=== PATIENT | male | born 1990 | race Caucasian/White ===

== ENCOUNTER 2019-07-01 18:40 | Emergency (ER) | payer SELFPAY ==
[~2019-07-01] VITALS: Ht 170.2 cm; Wt 74.8 kg
[2019-07-01 19:00] VITALS: BP_SYST 132
[2019-07-01 19:28] VITALS: BP_SYST 132
== END 2019-07-01 19:26 ==
LOC: SED 18:40
DX: S01.81XA Laceration without foreign body of other part of head, initial encounter (principal); F10.129 Alcohol abuse with intoxication, unspecified; V89.2XXA Person injured in unspecified motor-vehicle accident, traffic, initial encounter; Y93.89 Activity, other specified; Y92.488 Other paved roadways as the place of occurrence of the external cause; Y99.8 Other external cause status
CPT/HCPCS: 99283

== ENCOUNTER 2020-11-21 03:25 | Emergency (ER) | payer MEDICAID ==
[2020-11-21] MEDS ORDERED: BACITRACIN 1 GM OINT TP ONE (04:06)
[2020-11-21] MEDS ORDERED: BACITRACIN ZINC 15 GM TOPICAL OINTMENT TP ONE (04:15)
[2020-11-21] MEDS ORDERED: DIPHENHYDRAMINE HCL 50 MG CAPSULE PO ONE ×2 (04:15→04:30)
[2020-11-21] MEDS ORDERED: BACTROBAN TP (04:22)
[2020-11-21 04:29] VITALS: BP_SYST 142
[2020-11-21] MEDS ORDERED: ACETAMINOPHEN 500 MG TABLET ONE (04:29)
[2020-11-21] MEDS ORDERED: ACETAMINOPHEN 500 MG TABLET PO ONE (04:30)
== END 2020-11-21 04:29 ==
LOC: SED 03:25
DX: S09.90XA Unspecified injury of head, initial encounter (principal); Y35.811A Legal intervention involving manhandling, law enforcement official injured, initial encounter; Y93.89 Activity, other specified; Y92.89 Other specified places as the place of occurrence of the external cause; Y99.8 Other external cause status
CPT/HCPCS: 99284; Q0163

== ENCOUNTER 2021-05-22 01:31 | Emergency (ER) | payer MEDICAID ==
[~2021-05-22] VITALS: Ht 165.1 cm; Wt 68.0 kg
[~2021-05-22 01:31] MED LIST: BACTROBAN TP
[2021-05-22 01:34] VITALS: BP_SYST 103
[2021-05-22 04:43] VITALS: BP_SYST 103
== END 2021-05-22 04:43 | disposition home or self-care (01) ==
LOC: SED 01:31
DX: S00.81XA Abrasion of other part of head, initial encounter (principal); F10.129 Alcohol abuse with intoxication, unspecified; Z79.899 Other long term (current) drug therapy; W18.39XA Other fall on same level, initial encounter; Y93.89 Activity, other specified; Y92.89 Other specified places as the place of occurrence of the external cause; Y99.8 Other external cause status
CPT/HCPCS: 70450-TC; 76376; 99284